=== PATIENT | female | born 1945 | race Caucasian/White ===

== ENCOUNTER 2019-02-13 17:43 | Observation (INO) | payer SELFPAY ==
[2018-12-26 09:25] VITALS: BMI 24.5
[2019-01-29 15:25] VITALS: BMI 24.5
[2019-02-13] VITALS (10 sets, daily range): BP systolic 77–103; BP diastolic 45–64; PULSE 62–71; RESP 12–16; TEMP 35.7–36.8; O2SAT 95–100; BMI 23.8; BMI 25.1
--- NOTE | 2019-02-13 06:50 | HP.PCM_ITS ---
History and Physical Date of Admission: 02/13/19 HISTORY OF PRESENT ILLNESS 73 year old woman presents for preop evaluation for facial rejuvenation. In the past she was told she looked younger than her stated age. Now she looks in the mirror and she thinks she looks older than her stated age. She is concerned about her cheeks, chin, and neck with sagging skin facial aging and facial rhytids. When she applies lipstick, she is also concerned about perioral rhytids as well. She is more concerned about her lower facial aging at this point. She has upper facial issues with skin redundancy of the upper eyelids and loose skin with fat herniation of the lower eyelids. After her lower facial rejuvenation has healed, she will address her eyelids. She is hoping by [place] time. As far as the status of her eyebrows with regard to ptosis, her eyebrows are minimal to absent, and she uses an eyebrow pencil. She has decided to proceed with the facelift along with CO2 laser resurfacing of her perioral rhytids. PAST MEDICAL HISTORY Osteopenia PAST SURGICAL HISTORY None ALLERGIES No Known Allergies MEDICATIONS Acidophilus clindamycin diazepam docusate sodium oxycodone-acetaminophen promethazine valacyclovir FAMILY HISTORY Mother - Hypertension SOCIAL HISTORY Smoking Status: Former smoker substance use type: does not use REVIEW OF SYSTEMS General - Denies fever, fatigue, and weight loss. Eyes - Denies cataracts and glaucoma. ENT - Denies nasal congestion and sore throat. Endocrine - Denies excessive thirst and urination. Skin - Denies suspicious lesions and skin cancer. Musculoskeletal - Denies joint pain, joint stiffness, weakness of muscles and joints, back pain, and arthritis. Neuro - Denies headaches. Cardiovascular - Denies chest pain, fatigue, and shortness of breath with exertion. Psych - Denies anxiety and depression. Respiratory - Denies chronic cough and shortness of breath. Gastrointestinal - Denies nausea, vomiting, and constipation, and diarrhea. Hematologic - Denies abnormal bruising and bleeding. Genitourinary - Denies hematuria and urinary frequency. PHYSICAL EXAMINATION General - Alert and Oriented. HEENT - PERRL. EOMI. Throat is clear. She has facial rhytids. She has prominent deepened superior melolabial folds with cheek skin laxity. Has skin redundancy at her cervical mandibular area with increased jowl formation and skin laxity. Also has perioral rhytids. She has redundant skin and subcutaneous tissue bilateral upper eyelids. She has redundant skin and subcutaneous tissue with fat herniation bilateral lower eyelids. She has some lower eyelid skin laxity. No ectropion at the present time. Uses an eyebrow pencil as her eyebrows are minimal to absent. Neck - Supple and nontender. No cervical adenopathy. Has platysmal bands anteriorly. Has decussation of platysma muscles. Has skin redundancy in her neck with skin laxity. Lungs - Clear to auscultation. Heart - Regular rate and rhythm. Abdomen - Soft and nondistended. Extremities - FROM. No axillary adenopathy. Radial pulses are palpable. Neuro - CN II-XII grossly intact. Psych - Normal mood and affect. ASSESSMENT 1. Signs of facial aging with skin laxity. 2. Facial rhytids. 3. Perioral rhytids. 4. Dermatochalasis bilateral upper and lower eyelids. 5. Unacceptable cosmetic appearance. PLAN Discussed with the patient about facial rejuvenation. This includes lower and upper facial rejuvenation. With her skin laxity and skin redundancy, she would benefit from a rhytidectomy including the cheeks and chin and neck lift with a platysmaplasty and possible SMAS advancement flap. She has prominent deepened superior melolabial folds that would be improved but not removed. Some additional fillers in the future would be helpful there. The jowl formation w ould be improved with a more defined cervical mandibular area. She has platysmal bands anteriorly and decussation of the platysma muscles that would benefit from a neck lift and a platysmaplasty to tighten the repair. This also decreases the platysmal bands. Sometimes platysmal excision may be necessary as well. Sometimes horizontal excision of the anterior digastric muscles are needed for contouring. The skin laxity and skin redundancy in her neck would be improved as well with better contouring. To address her perioral rhytids, will proceed with CO2 laser resurfacing since there is no dissection in this area. Cannot do a CO2 laser resurfacing of the face at the same time as the rhytidectomy, because of risk of wound healing problems and skin compromise. CO2 laser resurfacing of the rest of the face can be done later on after the rhytidectomy has healed, at least 6 months. Because of the perioral CO2 laser resurfacing, will have her take Acyclovir perioperatively. After her lower facial rejuvenation surgery has healed, can then proceed with her upper facial rejuvenation surgery which involves the eyelids and eyebrows. Bilateral upper and lower blepharoplasty would be done which includes excision of skin and subcutaneous tissue and fat herniation. Because of skin laxity of the lower eyelids, will tighten the lower eyelid at the time of the blepharoplasty with a lateral tarsal strip procedure. She is hopeful that can be done at [facility]. She uses an eyebrow pencil to define her eyebrows as they are minimal to absent. Surgery would be done under general anesthesia. Patient wants to try and go home the same day. I told her that is possible as long as she is stable to go home the same day. A decision will be made postoperatively, and I won't hesitate to have spend the night with a surgical observation overnight stay in the hospital. She would have a drain for a few days and a compression dressing for a few weeks. She would be on antibiotics for a few days until the drain is removed. She has decided to proceed with the surgery. It is scheduled for 02/13/19. Her preop questions have been answered personally and to her satisfaction. Her facial compression wrap has been decided upon that she will order and use postoperatively. Her consents were signed. Preop photographs were taken. Patient was informed of the risks and complications of the procedure including alternatives to surgery. These were discussed with the patient personally. Patient voices understanding and wishes to proceed. Some of the risks and complications were included in a form from the [employer]. Wrote scripts that she will fill now in order to have them ready postop. Cleocin, Acidophilus Probiotic, Percocet (40 tabs), Valium (20 tabs), Colace, Phenergan, and Valtrex. She will start the Valtrex 2 days prior to surgery and continue them postoperatively.
[2019-02-13] MEDS: Petrolatum,White 3.75GM OPTH.TUBE 1 APPLIC OPHTHALMIC (08:45)
[2019-02-13] MEDS: Mupirocin Ointment 22gm Tube 1 APPLIC (15:58)
--- NOTE | 2019-02-13 17:34 | PCM.OPRPT ---
Report of Operation Date of Procedure: 02/13/19 Pre-Operative Diagnosis: 1. Signs of facial aging with skin laxity. 2. Facial rhytids. 3. Perioral rhytids. 4. Dermatochalasis bilateral upper and lower eyelids. 5. Unacceptable cosmetic appearance. Post-Operative Diagnosis: Same. Surgery/Procedure Performed:: 1. Bilateral rhytidectomy including cheeks, chin, and neck with platysmaplasty. 2. Treatment perioral rhytids with CO2 laser fractional ablative resurfacing. Description of Surgical Findings:: 73 year old woman presents for preop evaluation for facial rejuvenation. In the past she was told she looked younger than her stated age. Now she looks in the mirror and she thinks she looks older than her stated age. She is concerned about her cheeks, chin, and neck with sagging skin facial aging and facial rhytids. When she applies lipstick, she is also concerned about perioral rhytids as well. She is more concerned about her lower facial aging at this point. She has upper facial issues with skin redundancy of the upper eyelids and loose skin with fat herniation of the lower eyelids. After her lower facial rejuvenation has healed, she will address her eyelids. She is hoping by [place] time. As far as the status of her eyebrows with regard to ptosis, her eyebrows are minimal to absent, and she uses an eyebrow pencil. She has decided to proceed with the facelift along with CO2 laser resurfacing of her perioral rhytids. Patient was informed of the risks and complications of the procedure including alternatives to surgery. These were discussed with the patient personally. Patient voices understanding and wishes to proceed. Some of the risks and complications were included in a form from the [employer]. IV Fluids -3000 ml. Urine Output - 1800 ml. I used Sherlyn absorbable hemostats, (I used 3 vials). Reference Number - [id number]. Lot Number - [id number]. Expiration - October 13, 2023. I used CORE CO2 Laser. Rate - 0.75 second interval. Mode - Fusion. Power/Fluence - Ring is 84.8 millijoules @16.4 joules/cm2. Core is 50.0 millijoules @ 283 joules/cm2. Density/Width - 25% Fractional Coverage. Spot Size - 8.4 x 8.4 mm (square) for the first pass. 8.4 x 2.7 mm (rectangle) for the second pass over the rhytids. night shift supervisor: Chichi Verdin. Type of Anesthesia:: General Specimen's removed: None. Drains: Germain. Estimated Blood Loss (mL): 250 ml. Fluids Replaced: 4800 ml (IV Fluids 3000 ml, Urine Output 1800 ml). Description of Procedure: Patient was seen in the preop area and placed in the sitting position. Markings were made posterior to the chin crease horiziontally for 5 cm. I made markings in the preauricular area bilaterally extending retrotragally and extending around the lobe into the postauricular area. The marking was then curved toward the hairline and extended inferiorly. Patient was then taken to OR in supine position and was placed under general anesthesia. The face and neck areas were prepped and draped in the usual fashion. SCD's were placed for DVT prophylaxis. Perioperative antibiotics were given intravenously. A briceno catheter was placed. Using xylocaine with epinephrine, the markings were infiltrated. After waiting 5 minutes for the anesthetic to take effect, I made an incision horizontally posterior to the chin crease. Dissection was carried down to the platysma muscle. There was a decussation of the platysma muscles. There was also some subplatysmal fat. I dissected bilateral neck flaps at the level of the platysma muscle toward the ears. I then excised the subplatysmal fat. This exposed enlarged anterior digastric muscle bellies. The enlarged muscle bellies were horizontally excised. Hemostasis was obtained with electrocautery. The submandibular gland did not appear bulging at this time. I tightened the platysma muscular sling in the midline as a platysmaplasty with 3-0 Monocryl simple running buried suture. I did a double layer closure with a second 3-0 Monocryl simple running buried suture. I then made incisions in both preauricular and post-auricular areas down into the subcutaneous tissue. I first started on the left and then when finished, I went over to the right side. After the incisions were made, I dissected down to the muscle. I carefully elevated cheek flaps at the level of the facial musculature to the nasolabial fold medially and to the lower eyelid junction superiorly and down to the platysma muscle inferiorly. I was able to combine both dissections into one continuous undermined area. I then went to the right side and dissected a cheek flap on that side as well. Using nerve stimulation, I was able to note function of the temporal branch, the zygomatic branch, the buccal branch, the marginal mandibular branch, and the cervical branch. Also during the dissection, I located the greater auricular nerve bilaterally as it was traversing over the sternomastoid muscle and preserved the nerves. I then gently advanced the cheek and chin and neck skin flaps both superiorly and posteriorly. I stood at the top of the bed to get a symmetrical view of the face during the advancement of the cheek and chin and neck skin flaps. Where the flap reached the level of the helical root, I placed a temporary 4-0 Monocryl suture. I also made an anchoring suture in the postauricular area as well as the earlobe area using a 4-0 Monocryl suture. The excess tissue was excised. About 2.5 cm of skin advancement was noted. Care was taken not to create too much distortion on the lips and eyelid. The wounds were irrigated with saline. Hemostasis was obtained with electrocautery. I sprayed Sherlyn absorbable hemostat into the dissected areas. I used 3 vials, one for each cheek and one for the neck. I then placed a size 15 Germain drain through a separate stab incision in the left postauricular area in the occipital hairline. The drain was placed from left cheek through the neck to the right cheek. The drain was secured to the skin with 3-0 Nylon suture. I closed the horizontal neck incision in multiple layered fashion with 5-0 Monocryl figure of eight interrupted sutures for the deep subcutaneous tissue. The deep dermis and subcutaneous tissue was approximated with 5-0 Monocryl interrupted sutures. The skin was approximated with 4-0 V lock unidirectional barbed running subcuticular suture. I then closed the preauricular areas and postauricular areas with 5-0 Monocryl interrupted sutures for the deep dermis and subcutaneous tissue. I extended the preauricular incision slightly into the temporal hairline to minimize bulging. The skin was approximated in the preauricular area and temporal hairline with 4-0 V lock unidirectional barbed running subcuticular suture. The postauricular skin was approximated with 5-0 Prolene simple interrupted sutures. The incisions closed with V lock had additional Histoacryl skin tissue adhesive. For the postauricular areas, I placed antibiotic ointment onto the suture line. I then addressed the perioral area. Everybody in the room had laser goggles. I placed eye patches followed by moistened gauze. I covered the ET tube with a moistened towel. Moistened towels were also used to drape the lips. I used a CORE CO2 fractional ablative laser for the treatment of her perioral rhytids. The initial pass was around the lips and extending to the perialar area superiorly and to the chin inferiorly to laser entire cosmetic subunits. I stopped at the nasolabial folds because that is where the flap dissection had stopped. I used 25% fractional coverage with a 0.75 second interval. The ring was 84.8 millijoules and the core was 50.0 millijoules. For the initial pass, I used a spot size of 8.4 x 8.4 mm with a square pattern. For the second pass, I concentrated just on the perioral rhytids and used a spot size of 8.4 2.7 cm with a rectangular pattern. In between passes, I wiped off excess tissue with a moistened sponge. After the second pass, I stopped. I dressed the perioral area with Aquaphor ointment. For the rest of the face and neck, I placed gauze over the incisions followed by a compression neck and cheek wrap. At the end of the procedure, there was no evidence of vascular compromise and no clinical evidence of hematoma. Patient tolerated the procedure well and was sent to PACU in satisfactory condition. Patient will be sent upstairs for continued postop care. She will keep her head elevated during the initial postop period. She will minimize neck flexion. She will be on a lifting restriction as well. The drain will be removed in a couple of days. Grafts/Implants Used: None. - Complications None. - Admit VTE Documentation VTE Present on Admission: No VTE Mechan Device Prophylaxis: SCD's VTE Pharm Prophylaxis ordered?: Yes Code Visit Surgery Charges (Cosmetic - already paid) CPT - 82515-50 ICD-10 - R23.8, L98.8, L57.4, Z41.1 59293 R23.8, L98.8, Z41.1
[2019-02-13] MEDS: Lactated Ringers 1,000 ML 150 ML IV (21:49)
[2019-02-13] MEDS: MethylPREDNISolone 125 MG/2 ML Vial IV (21:50)
[2019-02-13] MEDS: Acyclovir 800 MG Tablet PO (23:17)
[2019-02-14 01:00] VITALS: BP 101/58; PULSE 63; RESP 14; TEMP 36.4; O2SAT 97
[2019-02-14] MEDS: Lactated Ringers 1,000 ML 150 ML IV ×2 (05:43→12:30)
[2019-02-14] MEDS: MethylPREDNISolone 125 MG/2 ML Vial IV ×2 (05:44→13:24)
[2019-02-14] MEDS: Enoxaparin 40 MG/0.4 ML Syringe SC (05:44)
[2019-02-14] MEDS: 0.9% NaCl Peripheral Flush Adult/Peds IV (05:44)
[2019-02-14 06:01] VITALS: BP 115/65; PULSE 74; RESP 16; TEMP 36.9; O2SAT 98
[2019-02-14 06:17] LABS: Hematocrit 40.1 % (37-47); Hemoglobin 13.2 g/dL (12.0-15.0); Mean Corp Hgb Conc 32.9 g/dL (32-36); Mean Corpuscular Hgb 32.7 pg (27.0-32.0); Mean Corpuscular Volume 99.3 fL (81-99); Mean Platelet Vol. 10.7 fl (6.2-12.0); Platelet Count 224 K/mm3 (150-450); RBC Distribution Width CV 13.4 % (11.6-14.6); RBC Distribution Width SD 48.7 fl (35.1-43.9); Red Blood Count 4.04 M/mm3 (4.2-5.4); White Blood Count 10.7 K/mm3 (4.4-11.0)
[2019-02-14 06:30] LABS: Anion Gap 8 (5-15); BUN 18 mg/dL (7-18); BUN/Creat Ratio 22.2 RATIO (10-20); Calcium,Total 8.4 mg/dL (8.5-10.1); Chloride 107 mmol/L (98-107); Creatinine, Serum 0.81 mg/dL (0.55-1.02); EST Glomerular Filtration Rate 74 mL/min (>60); Est Glom Filt Rate - Afr Amer 89 mL/min (>60); Estimated Creatinine Clearance 54.21 ml/min; Glucose 131 mg/dL (74-106); Sodium Level 141 mmol/L (136-145)
[2019-02-14] MEDS: Acyclovir 800 MG Tablet PO (08:38)
[2019-02-14] MEDS: NIFEdipine 30 MG Tablet PO (08:38)
[2019-02-14] MEDS: Docusate Sodium 100 MG/10 ML UDC PO (08:41)
[2019-02-14 08:45] VITALS: BP 119/72; PULSE 77; RESP 16; TEMP 37; O2SAT 98
--- NOTE | 2019-02-14 14:39 | PN.SURG_ITS ---
Subjective: Postop #1 Patient is resting comfortably. - Physical Exam General: Alert, Oriented x3 HEENT: PERRLA, EOMI Oral: Moist Mucosa Neck: Supple Lungs: Clear to auscultation Cardiovascular: Regular rate, Regular Rhythm Abdomen: Soft, Non-Distended Skin: Incision - dry and intact. No vascular compromise noted on the skin flaps. No cliinical evidence of hematoma. Face is mildly swollen. Good neck contour noted. Good cheek contour noted., - - Perioral area has mild tenderness. No drainage or evidence of infection. Mild discoloration. No exudate seen. Neurological: Cranial nerves II-XII grossly intact - 5 branches of the facial nerve are functioning. Can smile symmetrically. Can close her eyes symmetri tommy. Can raise her eyebrows. Psych/Mental Status: Normal Affect, Appropriate Vital Signs Temp Pulse Resp BP Pulse Ox 98.6 F 77 16 119/72 98 02/14/19 08:45 02/14/19 08:45 02/14/19 08:45 02/14/19 08:45 02/14/19 08:45 Oxygen Delivery Method Room Air Weight: 146 lb 6.191 oz Body Mass Index (BMI) 25.1 Intake and Output for Last 24 Hours 02/12/19 02/13/19 02/14/19 23:59 23:59 23:59 Intake Total 4000 / 4000 4051 / 4051 Output Total 2095 / 2095 935 / 935 Balance 1905 / 1905 3116 / 3116 Drainage 50 ml yesterday, 60 ml today. Laboratory Tests Past 24 Hrs 02/14/19 02/14/19 05:40 05:40 WBC 10.7 RBC 4.04 L Hgb 13.2 Hct 40.1 MCV 99.3 H MCH 32.7 H MCHC 32.9 RDW Std Deviation 48.7 H RDW Coeff of Toya 13.4 Plt Count 224 MPV 10.7 Sodium 141 Potassium 4.0 Chloride 107 Carbon Dioxide 26.0 Anion Gap 8 BUN 18 Creatinine 0.81 Estim Creat Clear Calc 54.21 Est GFR (MDRD) Af Amer 89 Est GFR (MDRD) Non-Af 74 BUN/Creatinine Ratio 22.2 H Glucose 131 H Calcium 8.4 L Medical Necessity - Tobacco Use Smoking Status: Former smoker Assessment/Plan 1. Signs of facial aging with skin laxity. 2. Facial rhytids. 3. Perioral rhytids. 4. Dermatochalasis bilateral upper and lower eyelids. 5. Unacceptable cosmetic appearance. 6. s/p bilateral rhytidectomy including cheeks, chin, and neck with platysmaplasty. 2. Treatment perioral rhytids with CO2 laser fractional ablative resurfacing. Patient is resting comfortably. Incisions are dry and intact. Minimal bruising seen on the left lateral neck. No clinical evidence of hematoma. No vascular compromise noted on the skin flaps. Facial nerve function is symmetrical. Face is mildly swollen. Good neck contour noted. Good cheek contour noted. Apply Aquaphor to the lasering in the perioral area. Discharge home today. Keep head elevated. Continue face and neck compression dressing. Minimize flexion of the neck. She already has scripts that were given to her preoperatively (Cleocin, Acidophilus Probiotic, Valtrex, Percocet, Valium, Phenergan, and Colace). Followup Tuesday02/16/19. Will remove the drains at that time.
--- NOTE | 2019-02-14 14:51 | DCINST_ITS ---
You will use the following diet at home:: No restrictions Discharge Activity: May Not Drive, May not drive while taking narcotic pain med ications., May Not Shower - until the drain is removed in the office., - - keep head elevated. minimize neck flexion. Using an airplane pillow around the neck helps to keep the neck straight and helps to minimize neck flexion. May shower in (days): 2 - after the drain is removed. May resume sexual activity in: 4-6 weeks Ice area for (Minutes): 5 - as needed for facial swelling. Weight Bearing Status: Weight bearing as tolerated Lifting Restrictions: 20 lbs. Keep extremity elevated above heart level: - - elevate head. Call your doctor if your incision/area has: Continuous Slow Oozing, Sudden Increased Bleeding, Increased Pain/ Swelling, Increased Redness, Foul Smelling Discharge, Swelling at the incision site, - - worsening pain that is not controlled with Percocet. Call your doctor if you observe: Fever of 101 or Higher, Coldness, Increased Pain, Shortness of breath, Chest pain, Calf discomfort, Uncontrolled pain Suture Line Care: - - dry dressings daily. there is a portion of the incision that extends into the temporal hairline and bactroban ointment can be used daily there. Cleanse incision/area with: - - may get incisions wet in the shower after the drain is removed in the office. Drain: Suction - aaron drain to bulb suction. empty and record output daily. Additional Instructions: Patient has Cleocin, Percocet, Valium, Valtrex, Acidophilus Probiotc, Phenergan, and Colace at home that she will use post- discharge. She should apply Aquaphor or an equivalent ointment onto the perioral area 3-4 times per day. Continue cheek and neck compression garment. Allergies/Adverse Reactions: Allergies No Known Allergies Allergy (Unverified 02/06/19 11:17) Medications to take at Discharge L.acidophil,salivari-Bifido bifidum-Strep thermoph 175 mg capsule 1 cap PO BID #10 cap 01/29/19 clindamycin HCl 300 mg capsule 300 mg PO TID #15 cap 01/29/19 diazepam 5 mg tablet 5 mg PO TID PRN #20 tab 01/29/19 docusate sodium 100 mg capsule 100 mg PO BID #60 cap 01/29/19 oxycodone-acetaminophen 5 mg-325 mg tablet 1 tab PO Q4H PRN #40 tab 01/29/19 promethazine 25 mg tablet 25 mg PO 4X/DAY PRN #30 tab 01/29/19 valacyclovir 500 mg tablet 500 mg PO BID #20 tab 01/29/19 Ascorbic Acid [Vitamin C] 500 mg PO BIDCM 02/06/19 Calcium Carbonate/Vitamin D3 [Calcium 600 + Vit D Tablet] 2 ea PO DAILY 02/06/19 Cyanocobalamin (Vitamin B-12) [Vitamin B-12] 5,000 mcg PO DAILY 02/06/19 Magnesium Oxide [Magnesium] 500 mg PO DAILY 02/06/19 Mv-Mn/Folic Acid/Calcium/Vit K [Women's 50 Plus Daily Formula] 1 ea PO DAILY 02/06/19 Niacin [Slo-Niacin] 500 mg PO DAILY 02/06/19 Ubidecarenone/Vit E Acet [Co Q-10 100 mg Softgel] 1 ea PO DAILY 02/06/19 Lactobacillus Acidophilus [Acidophilus] 1 tablet PO BID tablet 02/14/19 Petrolatum,White [Aquaphor] 10 gm TP .TID-QID #396 gm 02/14/19 The following prescriptions were given: Petrolatum,White [Aquaphor] 10 gm TP .TID-QID #396 gm Prescription Printed Primary Care Physician: Lucas Mueller DO [Primary Care Provider] - Test Results: Test results from this visit will be discussed in further detail at your follow- up appointment, if applicable. Please Follow Up With: Scooby Rizo MD When: tuesday02/16/19. call [phone] for appt. Proposed Discharge Date: 02/14/19
[2019-02-14 15:00] VITALS: BP 112/62; PULSE 82; RESP 16; TEMP 37.2; O2SAT 94
== END 2019-02-14 15:35 | disposition home or self-care (01) ==
LOC: MS3 18:00 → SDC 02-14 10:48
PROVIDERS: Admitting Provider Surgery; Family Provider Preventive Medicine Occupational Medicine; PCP Preventive Medicine Occupational Medicine; Referring Provider Surgery; Visit Provider Surgery
PROC: (CPT 15828; principal; 2019-02-13 07:15)
DX: H02.35 Blepharochalasis left lower eyelid (principal); H02.34 Blepharochalasis left upper eyelid; H02.31 Blepharochalasis right upper eyelid; H02.32 Blepharochalasis right lower eyelid; L57.4 Cutis laxa senilis; L98.8 Other specified disorders of the skin and subcutaneous tissue; Z87.891 Personal history of nicotine dependence; M85.80 Other specified disorders of bone density and structure, unspecified site; Z79.899 Other long term (current) drug therapy
CPT/HCPCS: 00300; 15828; 17999; 36415; 80048; 85027; 96361; 96365; 96366; 96372; 96375; 96376; 99218; J7120; A4216; G0378; G0379; J2405; Q9968

== ENCOUNTER 2019-08-14 08:23 | Day surgery (SDC) | payer MEDICARE, SELFPAY ==
[2019-07-25 10:29] VITALS: BMI 25.1
--- NOTE | 2019-08-13 21:10 | PCM.HP.BLA ---
History and Physical Date of Admission: 08/14/19 HISTORY OF PRESENT ILLNESS 73 year old woman presents with a soft tissue mass contour deformity anterior neck after surgery last Summer where she underwent bilateral rhytidectomy including cheeks, chin, and neck with platysmaplasty and treatment perioral rhytids with CO2 laser fractional ablative resurfacing. She developed some adherence of the neck scar to the underlying platysma muscle. There is some discomfort with neck range of motion. She denies trauma. PAST MEDICAL HISTORY Osteopenia PAST SURGICAL HISTORY Bilateral rhytidectomy including cheeks, chin, and neck with platysmaplasty and treatment perioral rhytids with CO2 laser fractional ablative resurfacing - 02/13/19 ALLERGIES No Known Allergies MEDICATIONS Vitamin C. Calcium carbonate. Vitamin D3. Vitamin B12. Magnesium. MVI. Niacin. CoQ10. FAMILY HISTORY Mother - Hypertension SOCIAL HISTORY Smoking Status: Former smoker substance use type: does not use REVIEW OF SYSTEMS General - Denies fever, fatigue, and weight loss. Eyes - Denies cataracts and glaucoma. ENT - Denies nasal congestion and sore throat. Endocrine - Denies excessive thirst and urination. Skin - Denies suspicious lesions and skin cancer. Musculoskeletal - Denies joint pain, joint stiffness, weakness of muscles and joints, back pain, and arthritis. Neuro - Denies headaches. Cardiovascular - Denies chest pain, fatigue, and shortness of breath with exertion. Psych - Denies anxiety and depression. Respiratory - Denies chronic cough and shortness of breath. Gastrointestinal - Denies nausea, vomiting, and constipation, and diarrhea. Hematologic - Denies abnormal bruising and bleeding. Genitourinary - Denies hematuria and urinary frequency. PHYSICAL EXAMINATION General - Alert and Oriented. HEENT - PERRL. EOMI. Throat is clear. Neck - Supple. No cervical adenopathy. There is an anterior neck incision scar contour deformity with adherence to the underlying platysma muscle. Some discomfort with neck range of motion. There is an associated soft tissue mass contour deformity. Measures 1.5 cm. Lungs - Clear to auscultation. Heart - Regular rate and rhythm. Abdomen - Soft and nondistended. Extremities - FROM. No axillary adenopathy. Radial pulses are palpable. Neuro - CN II-XII grossly intact. Psych - Normal mood and affect. ASSESSMENT 1.5 cm soft tissue mass scar contour deformity anterior neck. PLAN Patient has a soft tissue mass contour deformity anterior neck after surgery last Summer. There is adherence of the incision scar to the underlying platysma muscle. There is some discomfort with neck range of motion. Recommend surgical preparation anterior neck with excision of the soft tissue mass contour deformity. This will necessitate excising the adherent scar tissue off the underlying platysma muscle. This may require extending the incision vertically to get exposure. Patient is aware of the possible need for a vertical incision and wishes to proceed as long as it improves the symptomatology. Sometimes adherent scar tissue could be related to a subclinical infection. So tissue may be sent as well to Microbiology for culture. A positive culture will necessitate antibiotic therapy. Tissue will also be sent to Pathology for analysis to rule out carcinoma. Surgery will be done on an outpatient basis under local anesthesia with IV sedation. Patient was informed of the risks and complications of the procedure including alternatives to surgery. These were discussed with the patient personally. Patient voices understanding and wishes to proceed. Some of the risks and complications were included in a form from the [employer].
[2019-08-14] VITALS (7 sets, daily range): BP systolic 114–120; BP diastolic 70–89; PULSE 67–76; RESP 15–16; TEMP 35.9–36.9; O2SAT 100; BMI 24.3
[2019-08-14] MEDS: Lactated Ringers 1,000 ML 100 ML IV (08:55)
[2019-08-14] MEDS: Mupirocin Ointment 22gm Tube 1 APPLIC (10:26)
--- NOTE | 2019-08-14 10:55 | MASS_PTH ---
PATIENT: MICAELA ALMANZA LOC: [facility] [place] U#:[id number] AGE/SX: 73/F ROOM: RE08/14/[address]: Dr. Scooby Rizo MD : [id number] BED: DIS: 08/14/2019 SPEC #: [id number] RECD: 08/15/19 08:13 STATUS: HAWK REMallory #: [id number] ESTEFANY: 08/14/19 10:[address]: Scooby Rizo DEPT: SURGICAL PATHOLOGY RECD BY: Mikie Adhikari ENTERED: 08/15/19 08:32 SP TYPE: Mass OTHR DR: Dr. Lucas Mueller, DO Tissues: Neck, NOS Procedures: Surgery Specimen Level III HEADER OPERATION: Surgical preparation anterior neck with excision soft tissue PRE-OP DIAGNOSIS: 1.5 cm soft tissue mass contour deformity anterior TISSUE SUBMITTED: Anterior neck soft tissue MICROSCOPIC DIAGNOSIS Anterior neck soft tissue: A piece of skin with underlying tissue and fibroadipose tissue with reactive changes. SJ:carlos a 08/16/19 MICROSCOPIC DESCRIPTION Slides are reviewed. GROSS DESCRIPTION Received in fixative is one container labeled with the patient's name and designated anterior neck soft tissue. The specimen consists of a triangular piece of tabares-white skin measuring 2 x 1 cm and up to 0.5 cm in thickness. Also present in the container are three variable sized pieces of tabares soft tissue measuring in aggregate 1 x 1 x 0.3 cm. The largest piece is serially sectioned. The entire specimen is submitted in one cassette. / MARTIN:carlos a 08/15/19 TC:5 CPT: 83307
--- NOTE | 2019-08-14 11:21 | OP.PCM_ITS ---
Report of Operation Date of Procedure: 08/14/19 Pre-Operative Diagnosis: 1.5 cm soft tissue mass scar contour deformity anterior neck. Post-Operative Diagnosis: Same. Surgery/Procedure Performed:: Excision 1.5 cm soft tissue mass scar contour deformity anterior neck with z-plasty. Description of Surgical Findings:: 73 year old woman presents with a soft tissue mass contour deformity anterior neck after surgery last Summer where she underwent bilateral rhytidectomy including cheeks, chin, and neck with platysmaplasty and treatment perioral rhytids with CO2 laser fractional ablative resurfacing. She developed some adherence of the neck scar to the underlying platysma muscle. There is some discomfort with neck range of motion. She denies trauma. Patient was informed of the risks and complications of the procedure including alternatives to surgery. These were discussed with the patient personally. Patient voices understanding and wishes to proceed. Some of the risks and complications were included in a form from the [employer]. I used Sherlyn absorbable hemostat. Reference Number - [id number]. Lot Number - [id number]. Expiration - March 14, 2024. finishing machine operator: None Type of Anesthesia:: Local MAC - xylocaine with epinephrine and IV sedation. Specimen's removed: Soft tissue mass scar contour deformity anterior neck to Pathology and Microbiology. Drains: None. Estimated Blood Loss (mL): 10 ml. Description of Procedure: Patient was taken to OR in supine position and was given IV sedation. The neck was prepped and draped in the usual fashion. SCD's were placed for DVT prophylaxis. Perioperative antibiotics were given intravenously. The scar contour deformity anterior neck was infiltrated with xylocaine and epinephrine. After waiting 5 minutes for the anesthetic to take effect, incision was made through the previous scar contour deformity through the subcutaneous tissue until the platysma muscle was seen. The thickened scar tissue on the muscle was excised along with the soft tissue mass that was adherent to the muscle. I dissected on the muscle inferiorly and laterally. This freed up the skin flap for closure. There was some redundant skin that was excised through a vertical incision that extended up to the horizontal incision. Sometimes vertical incisions can lead to scar contracture so I designed z-plasties reconstruction at 45 degree angles. Incisions were made and the flaps were transposed easily. The wound was irrigated with saline. Hemostasis was obtained with electrocautery. I sprayed Sherlyn absorbable hemostat into the wound to minimize seroma formation. I approximated the edge of the vertical skin flaps to the midline of the horizontal incision with 4-0 Monocryl interrupted sutures through the deep dermis and subcutaneous tissue. The remaining deep dermis and subcutan eous tissue was approximated with 4-0 Monocryl interrupted sutures. The z- plasty flaps were approximated with 4-0 Monocryl interrupted sutures for the deep dermis and subcutaneous tissue. The skin was approximated with 5-0 Prolene simple interrupted sutures. Good neck contour was noted. Antibiotic ointment was applied to the suture line followed by gauze compression dressing. Tissue removed was sent to Pathology for analysis to rule out carcinoma and to Microbiology for culture. A positive culture will necessitate antibiotic therapy. Sometimes an adherent scar contour deformity can be related to a subclinical infection. Patient tolerated the procedure well and was sent to PACU in satisfactory condition. Patient will be sent home on antibiotics and pain medication. She will keep her head elevated during the initial postoperative period. Patient will followup in a couple of days for a wound check and for discussion of the pathology report and for discussion of the microbiology report. The sutures will be removed in a week. Grafts/Implants Used: None. - Complications None. - Admit VTE Documentation VTE Present on Admission: No VTE Mechan Device Prophylaxis: SCD's VTE Pharm Prophylaxis ordered?: No Code Visit Surgery Charges CPT - 41878 ICD-10 - R22.1, S11.90xS
--- NOTE | 2019-08-14 11:35 | PCM.DC ---
You will use the following diet at home:: No restrictions Discharge Activity: May not drive while taking narcotic pain medications., May Shower - in two days., - - head elevated. no heavy lifting. May shower in (days): 2 May resume sexual activity in: No Restrictions Weight Bearing Status: Weight bearing as tolerated Lifting Restrictions: 10 lbs. Keep extremity elevated above heart level: - - elevate head. Call your doctor if your incision/area has: Continuous Slow Oozing, Sudden Increased Bleeding, Increased Pain/ Swelling, Increased Redness, Foul Smelling Discharge, Swelling at the incision site Call your doctor if you observe: Fever of 101 or Higher, Coldness, Increased Pain, Shortness of breath, Chest pain, Calf discomfort, Uncontrolled pain Suture Line Care: - - after operative dressing removed in two days, apply antibiotic ointment to suture line daily. Change Dressing in (Days):: 2 Cleanse incision/area with: - - may get incision wet in the shower in two days. Allergies/Adverse Reactions: Allergies No Known Allergies Allergy (Unverified 08/14/19 08:36) Medications to take at Discharge Ascorbic Acid [Vitamin C] 500 mg PO BIDCM 02/06/19 Calcium Carbonate/Vitamin D3 [Calcium 600 + Vit D Tablet] 2 ea PO DAILY 02/06/19 Cyanocobalamin (Vitamin B-12) [Vitamin B-12] 5,000 mcg PO DAILY 02/06/19 Magnesium Oxide [Magnesium] 500 mg PO QHS 02/06/19 Mv-Mn/Folic AC/Calcium/Vit K1 [Women's 50 Plus Daily Formula] 1 ea PO DAILY 02/06/19 Niacin [Slo-Niacin] 500 mg PO DAILY 02/06/19 Cholecalciferol (VIT D3) [Vitamin D3] 1,000 unit PO DAILY 08/07/19 Clindamycin HCl [Cleocin] 300 mg PO TID #15 cap 08/14/19 Diazepam [Valium] 2 mg PO BID PRN PRN #10 tablet 08/14/19 Docusate Sodium [Colace] 100 mg PO BID #60 cap 08/14/19 Lactobacillus Acidophilus [Acidophilus Probiotic] 0.5 mg PO BID #20 tab 08/14/19 Oxycodone HCl/Acetaminophen [Percocet 5/325] 1 tablet PO Q6H PRN PRN 7 Days #30 tablet 08/14/19 proMETHazine tablet [Phenergan tablet] 25 mg PO 4X/DAY PRN PRN #30 tab 08/14/19 The following prescriptions were given: Lactobacillus Acidophilus [Acidophilus Probiotic] 0.5 mg PO BID #20 tab Transmission Status: Sent to [facility] Clindamycin HCl [Cleocin] 300 mg PO TID #15 cap Transmission Status: Sent to [facility] Docusate Sodium [Colace] 100 mg PO BID #60 cap Transmission Status: Sent to [facility] Oxycodone HCl/Acetaminophen [Percocet 5/325] 1 tablet PO Q6H PRN PRN 7 Days #30 tablet PRN Reason: Pain Score 4-5/10 Transmission Status: Received by [facility] proMETHazine tablet [Phenergan tablet] 25 mg PO 4X/DAY PRN PRN #30 tab PRN Reason: Nausea Transmission Status: Sent to [facility] Diazepam [Valium] 2 mg PO BID PRN PRN #10 tablet PRN Reason: Spasms Transmission Status: Received by [facility] Primary Care Physician: Lucas Mueller DO [Primary Care Provider] - Test Results: Test results from this visit will be discussed in further detail at your follow-up appointment, if applicable. Please Follow Up With: Scooby Rizo MD When: 08/16/19. call [phone] for appt. Proposed Discharge Date: 08/14/19
== END 2019-08-14 12:44 | disposition home or self-care (01) ==
LOC: SDC 08:24 → AC 08:27
PROVIDERS: PCP Preventive Medicine Occupational Medicine; Referring Provider Surgery; Visit Provider Surgery
PROC: (CPT 21552; principal; 2019-08-14 10:45)
DX: R22.1 Localized swelling, mass and lump, neck (principal); S11.90XS Unspecified open wound of unspecified part of neck, sequela; L90.5 Scar conditions and fibrosis of skin; Z87.891 Personal history of nicotine dependence; M85.80 Other specified disorders of bone density and structure, unspecified site; Z78.0 Asymptomatic menopausal state
CPT/HCPCS: 21552; 87070; 87075; 87077; 87102; 87176; 87205; 87206; 88304; 88305; J7120

== ENCOUNTER 2020-11-24 12:08 | Emergency (ER) | payer MEDICARE, SELFPAY ==
[2019-12-26 10:05] VITALS: BMI 24.3
[2020-11-24 12:09] VITALS: BP 116/76; PULSE 88; RESP 16; TEMP 36.4; O2SAT 97; BMI 24.8
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
--- NOTE | 2020-11-24 12:40 | RAD_ITS ---
STUDY: X-RAY - RIGHT ELBOW REASON FOR EXAM: Female, 75 years old. Injury/Pain TECHNIQUE: 3 view(s) of the elbow. COMPARISON: None. FINDINGS: There is an avulsion fracture of the olecranon process of the proximal portion of the ulna. Normal radiocapitellar and ulnotrochlear articulations. Joint effusion. Diffuse soft tissue swelling. RAD/Elbow min 3 Views IMPRESSION: Avulsion fracture of the olecranon process of the proximal ulna with evidence of diffuse soft tissue swelling and joint effusion. Electronically Signed: Keegan Farrar MD at 12:59 EDT , Service support ,
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
[2020-11-24 14:31] VITALS: BP 127/62; PULSE 59; RESP 16; O2SAT 98
== END 2020-11-24 14:32 | disposition home or self-care (01) ==
PROVIDERS: Emergency Provider Emergency Medicine; PCP Preventive Medicine Occupational Medicine
DX: S52.031A Displaced fracture of olecranon process with intraarticular extension of right ulna, initial encounter for closed fracture (principal); H11.31 Conjunctival hemorrhage, right eye; S00.83XA Contusion of other part of head, initial encounter; S40.022A Contusion of left upper arm, initial encounter; V03.10XA Pedestrian on foot injured in collision with car, pick-up truck or van in traffic accident, initial encounter; Y93.9 Activity, unspecified; Y92.9 Unspecified place or not applicable; Z87.891 Personal history of nicotine dependence
CPT/HCPCS: 29105; 70486; 73080; 99283